=== PATIENT | female | born 1995 | race Caucasian/White ===

== ENCOUNTER → 2020-06-29 | Outpatient (CLI) | payer OTHER ==
[~2020-06-29] MED LIST: CEFDINIR250 MG/5 M PO; CEFDINIR300 MG PEG; Cefdinir GT; KEFLEX500 MG PO; POTASSIUM20 MEQ/11 GT
[2020-06-29 15:20] LABS: BUN/CREATININE RATIO 16 (0-10)
[2020-06-30 12:14] LABS: PREALBUMIN 41 mg/dL (14-35)
[2020-07-02 12:10] LABS: ESTERIFIED/FREE 0.6 Ratio (0.0-0.9)
== END ==
LOC: OPSV 14:14
PROVIDERS: Nurse Practitioner Family
DX: E72.51 Non-ketotic hyperglycinemia (principal)
CPT/HCPCS: 36415; 36591; 80053; 82330; 82379; 84134; 96523; J1642

== ENCOUNTER → 2020-09-13 | Outpatient (CLI) | payer OTHER ==
[~2020-09-13] VITALS: Ht 147.3 cm; Wt 34.0 kg
== END ==
LOC: OPSV 13:57
DX: B34.9 Viral infection, unspecified (principal)
CPT/HCPCS: 96523; J1642

== ENCOUNTER → 2020-09-25 | Outpatient (CLI) | payer OTHER ==
[2020-09-25 13:44] LABS: BUN/CREATININE RATIO 18 (0-10)
== END ==
LOC: LAB 12:18
PROVIDERS: Nurse Practitioner Family
DX: E87.5 Hyperkalemia (principal)
CPT/HCPCS: 80053

== ENCOUNTER → 2020-10-25 | Outpatient (CLI) | payer OTHER | LOC: OPSV 10-18 13:00 | DX: Z45.2 Encounter for adjustment and management of vascular access device (principal) | CPT/HCPCS: 96523; J1642 ==

== ENCOUNTER 2020-11-03 20:26 | Emergency (ER) | payer OTHER ==
[~2020-11-03 20:26] MED LIST changes: -CEFDINIR250 MG/5 M PO; -CEFDINIR300 MG PEG
[2020-11-03 23:21] LABS: HEMOGLOBIN 14.6 gm/dl (12.3-15.3); RED BLOOD COUNT 4.64 M/UL (4.00-5.10); WHITE BLOOD COUNT 13.3 K/UL (4.5-11.0)
[2020-11-03 23:41] LABS: BUN/CREATININE RATIO 16 (0-10)
[2020-11-04] MEDS ORDERED: CEFDINIR300 MG PEG (01:02)
[2020-11-04] MEDS ORDERED: CEFDINIR250 MG/5 M PO (01:16)
== END 2020-11-04 01:30 | disposition home or self-care (01) ==
LOC: ER1 20:26
PROVIDERS: Physician Assistant
DX: N30.90 Cystitis, unspecified without hematuria (principal); Z93.1 Gastrostomy status; Z87.440 Personal history of urinary (tract) infections
CPT/HCPCS: 71045; 74018; 80053; 81001; 83605; 83690; 85025; 87086; 96374; 99284; J0696

== ENCOUNTER → 2020-12-13 | Outpatient (CLI) | payer OTHER ==
[~2020-12-13] VITALS: Ht 147.3 cm; Wt 34.0 kg
[~2020-12-13] MED LIST changes: +CEFDINIR250 MG/5 M PO; +CEFDINIR300 MG PEG
== END ==
LOC: OPSV 11-22 13:00
DX: Z45.2 Encounter for adjustment and management of vascular access device (principal)
CPT/HCPCS: 96523; J1642

== ENCOUNTER → 2021-01-17 | Outpatient (CLI) | payer OTHER | LOC: OPSV 13:00 | DX: Z45.2 Encounter for adjustment and management of vascular access device (principal) | CPT/HCPCS: 96523; J1642 ==

== ENCOUNTER → 2021-02-17 | Outpatient (CLI) | payer OTHER | LOC: OPSV 13:00 | DX: Z45.2 Encounter for adjustment and management of vascular access device (principal) | CPT/HCPCS: 96523; J1642 ==

== ENCOUNTER → 2021-03-17 | Outpatient (CLI) | payer OTHER ==
[~2021-03-17] VITALS: Ht 147.3 cm; Wt 34.0 kg
== END ==
LOC: OPSV 13:00
DX: Z45.2 Encounter for adjustment and management of vascular access device (principal)
CPT/HCPCS: 96523; J1642

== ENCOUNTER → 2021-04-27 | Outpatient (CLI) | payer OTHER | LOC: OPSV 04-14 13:00 | DX: Z45.2 Encounter for adjustment and management of vascular access device (principal); P14.0 Erb's paralysis due to birth injury; Q04.0 Congenital malformations of corpus callosum | CPT/HCPCS: 96523; J1642 ==

== ENCOUNTER → 2021-05-25 | Outpatient (CLI) | payer OTHER ==
[2021-05-25 14:01] LABS: HEMOGLOBIN 13.3 gm/dl (12.3-15.3); RED BLOOD COUNT 4.32 M/UL (4.00-5.10); WHITE BLOOD COUNT 7.3 K/UL (4.5-11.0)
[2021-05-25 14:22] LABS: BUN/CREATININE RATIO 13 (0-10)
== END ==
LOC: OPSV 13:00
PROVIDERS: Internal Medicine Gastroenterology
DX: Z45.2 Encounter for adjustment and management of vascular access device (principal); P14.0 Erb's paralysis due to birth injury; Q04.0 Congenital malformations of corpus callosum
CPT/HCPCS: 36591; 80053; 85025; 96523; J1642

== ENCOUNTER → 2021-06-28 | Outpatient (CLI) | payer OTHER ==
[~2021-06-28] VITALS: Ht 147.3 cm; Wt 34.0 kg
[2021-06-28 13:56] LABS: RED BLOOD COUNT 4.54 M/UL (4.00-5.10); WHITE BLOOD COUNT 9.4 K/UL (4.5-11.0)
[2021-06-28 14:17] LABS: BUN/CREATININE RATIO 16 (0-10)
[2021-06-29 07:12] LABS: PREALBUMIN 38 mg/dL (14-35); VITAMIN D, 25-HYDROXY 44.8 ng/mL (30.0-100.0)
== END ==
LOC: OPSV 13:00
PROVIDERS: Nurse Practitioner Family
DX: E72.51 Non-ketotic hyperglycinemia (principal); P14.0 Erb's paralysis due to birth injury; Q04.0 Congenital malformations of corpus callosum; Z45.2 Encounter for adjustment and management of vascular access device
CPT/HCPCS: 36591; 80053; 82139; 82330; 82379; 82607; 84134; 85025; J1642

== ENCOUNTER → 2021-08-24 | Outpatient (CLI) | payer OTHER | LOC: OPSV 07-27 13:00 | DX: Z45.2 Encounter for adjustment and management of vascular access device (principal); P14.0 Erb's paralysis due to birth injury; Q04.0 Congenital malformations of corpus callosum | CPT/HCPCS: 96523; J1642 ==

== ENCOUNTER → 2021-09-28 | Outpatient (CLI) | payer OTHER | LOC: OPSV 12:56 | DX: Z45.2 Encounter for adjustment and management of vascular access device (principal); P14.0 Erb's paralysis due to birth injury; Q04.0 Congenital malformations of corpus callosum | CPT/HCPCS: 96523; J1642 ==

== ENCOUNTER 2021-10-12 19:53 | Emergency (ER) | payer OTHER ==
[2021-10-12 21:01] LABS: HEMOGLOBIN 14.1 gm/dl (12.3-15.3); RED BLOOD COUNT 4.55 M/UL (4.00-5.10); WHITE BLOOD COUNT 9.7 K/UL (4.5-11.0)
[2021-10-12 21:26] LABS: BUN/CREATININE RATIO 9 (0-10)
[2021-10-13] MEDS ORDERED: KEFLEX SUS250 MG/5 M PO (02:15)
== END 2021-10-13 02:55 | disposition home or self-care (01) ==
LOC: ER1 19:53
PROVIDERS: Emergency Medicine
DX: N30.00 Acute cystitis without hematuria (principal); Z20.822 Contact with and (suspected) exposure to COVID-19; R45.1 Restlessness and agitation
CPT/HCPCS: 0240U; 51701; 74022; 80053; 81001; 82009; 82800; 83605; 83735; 84100; 85025; 87040; 87077; 87086; 87186; 96374; 96375; 96376; 99152; 99284; J1642; J2270; J7030; Q9967

== ENCOUNTER → 2021-11-18 | Outpatient (CLI) | payer OTHER ==
[~2021-11-18] VITALS: Ht 147.3 cm; Wt 34.0 kg
[~2021-11-18] MED LIST changes: +KEFLEX SUS250 MG/5 M PO
[2021-11-18 12:28] LABS: HEMOGLOBIN 14.3 gm/dl (12.3-15.3); RED BLOOD COUNT 4.65 M/UL (4.00-5.10); WHITE BLOOD COUNT 7.6 K/UL (4.5-11.0)
[2021-11-18 13:06] LABS: BUN/CREATININE RATIO 11 (0-10)
[2021-11-19 08:13] LABS: VITAMIN D, 25-HYDROXY 52.7 ng/mL (30.0-100.0)
[2021-11-19 09:13] LABS: PREALBUMIN 33 mg/dL (14-35)
[2021-11-22 17:11] LABS: ALANINE 238.3 umol/L (209.2-515.5); ALLOISOLEUCINE 0.9 umol/L (0.0-3.2); ALPHA-AMINOADIPATE 0.6 umol/L (0.0-1.9); ALPHA-AMINOBUTYRATE 14.9 umol/L (5.4-34.5); ARGININOSUCCINATE <0.1 umol/L (0.0-3.0); ASPARAGINE 70.5 umol/L (29.5-84.5); ASPARTATE 4.3 umol/L (0.0-7.4); BETA-ALANINE 1.2 umol/L (1.1-9.0); BETA-AMINOISOBUTYRATE 0.7 umol/L (0.0-4.3); CITRULLINE 44.8 umol/L (15.6-46.9); CYSTATHIONINE <0.5 umol/L (0.0-0.7); GAMMA-AMINOBUTYRATE <0.5 umol/L (0.0-0.6); GLUTAMATE 66.1 umol/L (18.1-155.9); GLUTAMINE 648.5 umol/L (372.8-701.4); GLYCINE 188.5 umol/L (144.0-411.0); HISTIDINE 84.7 umol/L (47.2-98.5); HOMOCITRULLINE <0.5 umol/L (0.0-1.7); HOMOCYSTINE <0.3 umol/L (0.0-0.2); HYDROXYLYSINE 0.2 umol/L (0.1-0.8); HYDROXYPROLINE 6.8 umol/L (4.7-35.2); ISOLEUCINE 52.5 umol/L (32.8-88.3); LEUCINE 93.8 umol/L (66.7-165.7); LYSINE 178.4 umol/L (94.0-278.0); METHIONINE 22.7 umol/L (14.7-35.2); ORNITHINE 69.6 umol/L (30.1-101.3); PHENYLALANINE 36.5 umol/L (35.8-76.9); PROLINE 135.1 umol/L (84.8-352.5); SARCOSINE 15.3 umol/L (0.0-4.0); SERINE 82.3 umol/L (48.7-145.2); TAURINE 121.9 umol/L (29.2-132.3); THREONINE 77.4 umol/L (67.8-211.6); TRYPTOPHAN 51.8 umol/L (23.5-93.0); TYROSINE 40.7 umol/L (27.8-83.3); VALINE 153.7 umol/L (133.0-317.1)
== END ==
LOC: OPSV 10-26 13:00
PROVIDERS: Nurse Practitioner Family
DX: E72.51 Non-ketotic hyperglycinemia (principal)
CPT/HCPCS: 36591; 80053; 82139; 82330; 82379; 82607; 84134; 85025; J1642

== ENCOUNTER 2021-12-04 11:10 | Emergency (ER) | payer OTHER ==
[2021-12-04 13:30] LABS: HEMOGLOBIN 13.5 gm/dl (12.3-15.3); RED BLOOD COUNT 4.3 M/UL (4.00-5.10); WHITE BLOOD COUNT 10.9 K/UL (4.5-11.0)
[2021-12-04 13:48] LABS: BUN/CREATININE RATIO 15 (0-10)
== END 2021-12-04 19:45 | disposition home or self-care (01) ==
LOC: ER1 11:10
PROVIDERS: Family Medicine
DX: K63.89 Other specified diseases of intestine (principal)
CPT/HCPCS: 51701; 80053; 81001; 83690; 85025; 87086; 96374; 96375; 99284; J1642; J2270; J2405; Q9967

== ENCOUNTER → 2022-01-10 | Outpatient (CLI) | payer OTHER | LOC: OPSV 14:00 | DX: Z45.2 Encounter for adjustment and management of vascular access device (principal); P14.0 Erb's paralysis due to birth injury; Q04.0 Congenital malformations of corpus callosum | CPT/HCPCS: 96360; J1642 ==

== ENCOUNTER → 2022-01-17 | Outpatient (CLI) | payer OTHER ==
[~2022-01-17] VITALS: Ht 147.3 cm; Wt 34.0 kg
== END ==
LOC: OPSV 14:00
DX: Z45.2 Encounter for adjustment and management of vascular access device (principal); G40.909 Epilepsy, unspecified, not intractable, without status epilepticus; Q04.0 Congenital malformations of corpus callosum
CPT/HCPCS: 96523

== ENCOUNTER → 2022-01-19 | Outpatient (CLI) | payer OTHER ==
[~2022-01-19] VITALS: Ht 121.9 cm; Wt 34.0 kg
[2022-01-19 14:35] LABS: HEMOGLOBIN 12.8 gm/dl (12.3-15.3); RED BLOOD COUNT 4.11 M/UL (4.00-5.10); WHITE BLOOD COUNT 7.1 K/UL (4.5-11.0)
[2022-01-19 15:11] LABS: BUN/CREATININE RATIO 12 (0-10)
== END ==
LOC: OPSV 13:40
PROVIDERS: Internal Medicine Gastroenterology
DX: Q04.0 Congenital malformations of corpus callosum (principal); P14.0 Erb's paralysis due to birth injury; G40.909 Epilepsy, unspecified, not intractable, without status epilepticus; E86.0 Dehydration
CPT/HCPCS: 36591; 80053; 83735; 84100; 85025

== ENCOUNTER → 2022-01-25 | Outpatient (CLI) | payer OTHER ==
[~2022-01-25] VITALS: Ht 147.3 cm; Wt 34.0 kg
== END ==
LOC: OPSV 14:00
DX: Z45.2 Encounter for adjustment and management of vascular access device (principal); G40.909 Epilepsy, unspecified, not intractable, without status epilepticus; Q04.0 Congenital malformations of corpus callosum
CPT/HCPCS: 96523; J1642

== ENCOUNTER → 2022-01-31 | Outpatient (CLI) | payer OTHER ==
[~2022-01-31] VITALS: Ht 147.3 cm; Wt 34.0 kg
[2022-01-31 16:15] LABS: BUN/CREATININE RATIO 8 (0-10)
== END ==
LOC: LAB 14:44 → OPSV 14:44
PROVIDERS: Internal Medicine Gastroenterology
DX: P14.0 Erb's paralysis due to birth injury (principal); Q04.0 Congenital malformations of corpus callosum
CPT/HCPCS: 36591; 80053; 82150; 83690

== ENCOUNTER → 2022-02-14 | Outpatient (CLI) | payer OTHER | LOC: OPSV 02-01 14:00 | DX: G40.909 Epilepsy, unspecified, not intractable, without status epilepticus (principal); Q04.0 Congenital malformations of corpus callosum | CPT/HCPCS: 96523 ==

== ENCOUNTER → 2022-02-28 | Outpatient (CLI) | payer OTHER | LOC: OPSV 02-21 15:00 | DX: Z45.2 Encounter for adjustment and management of vascular access device (principal); G40.909 Epilepsy, unspecified, not intractable, without status epilepticus; Q04.0 Congenital malformations of corpus callosum | CPT/HCPCS: G0463; J1642 ==

== ENCOUNTER → 2022-03-03 | Outpatient (CLI) | payer OTHER ==
[~2022-03-03] VITALS: Ht 147.3 cm; Wt 34.0 kg
== END ==
LOC: OPSV 14:00
DX: Z45.2 Encounter for adjustment and management of vascular access device (principal); G40.909 Epilepsy, unspecified, not intractable, without status epilepticus; Q04.0 Congenital malformations of corpus callosum
CPT/HCPCS: 96523; J1642